=== PATIENT | female | born 1980 | race Caucasian/White ===

== ENCOUNTER 2023-07-18 10:50 | Outpatient (CLI) | payer MEDICAID | END 2023-07-18 23:59 | disposition home or self-care (01) | LOC: MRI 10:50 | PROVIDERS: ATTEND Specialist | DX: M75.102 Unspecified rotator cuff tear or rupture of left shoulder, not specified as traumatic (principal); M25.512 Pain in left shoulder | CPT/HCPCS: 73221 ==